=== PATIENT | female | born 1995 | race Caucasian/White ===

== ENCOUNTER 2024-04-12 12:51 | Emergency (ER) | payer OTHER ==
[~2024-04-12] VITALS: Ht 162.6 cm; Wt 60.2 kg
[2024-04-12 14:09] VITALS: O2SAT 99
[2024-04-12 15:41] VITALS: BP 104/65; PULSE 77; RESP 16; TEMP 37.28076; O2SAT 100
== END 2024-04-12 15:41 | disposition home or self-care (01) ==
LOC: ER 12:51
DX: B34.9 Viral infection, unspecified (principal); Z98.890 Other specified postprocedural states
CPT/HCPCS: 71045; 99283